=== PATIENT | female | born 1945 | race Asian ===

== ENCOUNTER 2018-09-02 19:39 | Inpatient (IN) | payer OTHER ==
[~2018-09-02] VITALS: Ht 167.6 cm; Wt 79.9 kg
[~2018-09-02 19:39] MED LIST: ADV250/50; ALD25 INH; AMA1 PO; ARI5 PO; CAT0.1 PO; ECO81 PO; IMD60 PO; JANUVIA PO; LANTI SQ; LIDODERM TOP; LIO10 PO; LIPTRUZET PO; NAMENDA XR7 MG PO; NASONEX; NEU300 PO; NOVI SQ; PRO40 PO; RESTASIS OP; TOP50 PO; VOLOS; [UNRECOGNIZED DRUG - OTHER]; [UNRECOGNIZED DRUG - OTHER] OP; [UNRECOGNIZED DRUG - OTHER] PO
[2018-09-02 19:53] VITALS: Ht 167.6 cm; Wt 79.9 kg
[2018-09-02 20:58] LABS: PLATELET COUNT 156 x10^3mcL (130-400); RED CELL DISTRIBUTION WIDTH 13.9 % (11.5-14.5)
[2018-09-02 21:01] LABS: ALKALINE PHOSPHATASE 55 U/L (46-116); ALT/SGPT 32 U/L (14-59); AST/SGOT 29 U/L (15-37); CALCIUM 7.7 mg/dL (8.5-10.1); CARBON DIOXIDE 22.2 mmol/L (21-32); CHLORIDE SERUM 91 mmol/L (98-107); CREATININE SERUM 1.2 mg/dL (0.6-1.0); GLUCOSE SERUM 160 mg/dL (74-106); TOTAL PROTEIN, SERUM 6.2 g/dL (6.4-8.2)
[2018-09-02 21:03] LABS: BASOPHIL % 0 % (0-2)
[2018-09-02 21:12] LABS: UA SPECIFIC GRAVITY <=1.005 (1.005-1.035); microscopic required? YES; urine erythrocyte NEGATIVE (NEGATIVE)
[2018-09-02 21:17] LABS: ALBUMIN 2.9 g/dL (3.4-5.0)
[2018-09-02 21:18] LABS: POTASSIUM SERUM 2.6 mmol/L (3.5-5.1); SODIUM SERUM 124 mmol/L (136-145)
[2018-09-03 00:19] LABS: MAGNESIUM 1.7 mg/dL (1.8-2.4); PHOSPHOROUS 2.9 mg/dL (2.5-4.9)
[2018-09-03 00:20] LABS: CHOLESTEROL/HDL RATIO 1.6
[2018-09-03 04:29] VITALS: BP 138/50
[2018-09-03 07:03] LABS: CALCIUM 7.7 mg/dL (8.5-10.1); CARBON DIOXIDE 22.8 mmol/L (21-32); CHLORIDE SERUM 95 mmol/L (98-107); MAGNESIUM 1.9 mg/dL (1.8-2.4); SODIUM SERUM 126 mmol/L (136-145)
[2018-09-03 07:35] LABS: GLUCOSE SERUM 50 mg/dL (74-106)
[2018-09-03 08:16] LABS: BASOPHIL % 0.1 % (0-2); PLATELET COUNT 147 x10^3mcL (130-400); RED CELL DISTRIBUTION WIDTH 14.2 % (11.5-14.5)
[2018-09-03 08:55] VITALS: BP 119/62
[2018-09-03 12:00] VITALS: BP 115/54
[2018-09-03 17:00] VITALS: BP 124/71
[2018-09-03 19:05] LABS: CALCIUM 7.9 mg/dL (8.5-10.1); CARBON DIOXIDE 19.1 mmol/L (21-32); CHLORIDE SERUM 97 mmol/L (98-107); CREATININE SERUM 1.1 mg/dL (0.6-1.0); GLUCOSE SERUM 101 mg/dL (74-106); SODIUM SERUM 126 mmol/L (136-145)
[2018-09-03 21:14] VITALS: BP 123/48
[2018-09-04 05:17] VITALS: BP 116/55
[2018-09-04 06:15] LABS: BASOPHIL % 0.3 % (0-2); PLATELET COUNT 172 x10^3mcL (130-400)
[2018-09-04 06:27] LABS: RED CELL DISTRIBUTION WIDTH 14.7 % (11.5-14.5)
[2018-09-04 06:32] LABS: CALCIUM 8.3 mg/dL (8.5-10.1); CARBON DIOXIDE 22.7 mmol/L (21-32); CHLORIDE SERUM 95 mmol/L (98-107); CREATININE SERUM 1.1 mg/dL (0.6-1.0); GLUCOSE SERUM 198 mg/dL (74-106); POTASSIUM SERUM 4.8 mmol/L (3.5-5.1)
[2018-09-04 06:48] LABS: SODIUM SERUM 124 mmol/L (136-145)
[2018-09-04 08:47] VITALS: BP 149/64
[2018-09-04 12:42] VITALS: BP 112/61; BP 120/42
[2018-09-04 16:44] VITALS: BP 144/79
[2018-09-04 21:28] VITALS: BP 145/74
[2018-09-05 05:54] VITALS: BP 162/79
[2018-09-05 08:00] VITALS: BP 149/72
[2018-09-05 08:19] LABS: BASOPHIL % 0.1 % (0-2); PLATELET COUNT 233 x10^3mcL (130-400); RED CELL DISTRIBUTION WIDTH 14.4 % (11.5-14.5)
[2018-09-05 08:29] LABS: CALCIUM 9.1 mg/dL (8.5-10.1); CARBON DIOXIDE 22.1 mmol/L (21-32); CHLORIDE SERUM 99 mmol/L (98-107); CREATININE SERUM 1.3 mg/dL (0.6-1.0); GLUCOSE SERUM 219 mg/dL (74-106); SODIUM SERUM 130 mmol/L (136-145)
== END 2018-09-05 13:23 | disposition left against medical advice (07) | DRG 391 ==
LOC: ED 19:39 → DU 21:53
PROVIDERS: Emergency Medicine; General Practice; ADMIT Internal Medicine
DX: K52.9 Noninfective gastroenteritis and colitis, unspecified (principal); N17.0 Acute kidney failure with tubular necrosis; E87.1 Hypo-osmolality and hyponatremia; E44.0 Moderate protein-calorie malnutrition; N39.0 Urinary tract infection, site not specified; D68.69 Other thrombophilia; E11.649 Type 2 diabetes mellitus with hypoglycemia without coma; E86.0 Dehydration; I10 Essential (primary) hypertension; E87.6 Hypokalemia; J45.909 Unspecified asthma, uncomplicated; R74.0 Nonspecific elevation of levels of transaminase and lactic acid dehydrogenase [LDH]; E83.42 Hypomagnesemia; G30.9 Alzheimer's disease, unspecified; Z79.4 Long term (current) use of insulin; Z79.899 Other long term (current) drug therapy
CPT/HCPCS: 82962; 87046; 87046-59; J1815; J1885; J1956; J2405; J3480; J3490; J7030; J7040; J7042; J7050; Q0092